=== PATIENT | male | born 1945 | race Caucasian/White ===

== ENCOUNTER → 2020-06-19 | Day surgery (SDC) | payer MEDICARE, BC | LOC: MSO 06:48 | DX: E11.36 Type 2 diabetes mellitus with diabetic cataract (principal); H25.812 Combined forms of age-related cataract, left eye; I10 Essential (primary) hypertension; K21.9 Gastro-esophageal reflux disease without esophagitis; H91.90 Unspecified hearing loss, unspecified ear; Z79.84 Long term (current) use of oral hypoglycemic drugs; Z79.899 Other long term (current) drug therapy | CPT/HCPCS: 00142; J0171; J2250; V2632 ==